=== PATIENT | female | born 1945 | race Caucasian/White ===

== ENCOUNTER 2022-06-08 19:28 | Emergency (ER) | payer OTHER ==
[~2022-06-08] VITALS: Ht 154.9 cm; Wt 60.8 kg
[2022-06-08 19:40] VITALS: BP_SYST 151
--- NOTE | 2022-06-08 19:44 | NUR ---
Patient triaged and placed in waiting room. VSS and patient appears in no acute distress at this time. Accompanied by SELF, awaiting available bed, and MD notified of need for MSE.
--- NOTE | 2022-06-08 19:54 | NUR ---
Patient to ER bed 8 to gown for evaluation. Side rails up. Report given to Roxie VALDES.
--- NOTE | 2022-06-08 19:55 | NUR ---
MD at bedside with patient for evaluation.
--- NOTE | 2022-06-08 20:06 | NUR ---
Pt came from home with c/o of fish hook embedded into left thumb. Pt states she put her hand in to bag and was poked. Pt states the hook might be 15 years old. Pt denies pain at this time.
[2022-06-08] MEDS ORDERED: LIDOCAINE 1% 10 MG/ML, 20 ML MDV INJ ONE (20:15)
--- NOTE | 2022-06-08 20:17 | NUR ---
Pt to radiology via ambulation accompanied by staff.
[2022-06-08] MEDS ORDERED: LIDOCAINE 1%, 20 ML MDV 20 ML ONE (20:18)
--- NOTE | 2022-06-08 20:22 | NUR ---
Pt back from radiology via ambulation accompanied staff.
--- NOTE | 2022-06-08 20:40 | NUR ---
Dr. Purcell at bedside with paitent to remove foregin body from finger. Pt tolerating well. Pt states area is numb.
[2022-06-08] MEDS ORDERED: AMOX-423 PO (20:49)
[2022-06-08] MEDS ORDERED: DIPHTH,PERTUSS(ACELL),TET VAC 0.5 ML VIAL (Tdap) I.M. ONE ×2 (21:00→21:13)
[2022-06-08] MEDS ORDERED: BACITRACIN 1 GM OINT TP ONE ×2 (21:13→21:15)
[2022-06-08] MEDS ORDERED: AMOXICILLIN/CLAVULANATE POTASSIUM 250 MG/5 ML, 75 ML BTL PO ONE (21:15)
[2022-06-08] MEDS ORDERED: AMOXICILLIN/CLAVULANATE POTASSIUM 250 MG/5 ML, 75 ML BTL ONE (21:20)
[2022-06-08 21:26] VITALS: BP_SYST 123
--- NOTE | 2022-06-08 21:26 | NUR ---
Patient given written and verbal discharge instructions and verbalizes understanding. ER Dr. Purcell discussed with patient the results and treatment provided. Patient in stable condition. ID arm band removed. . Rx of augemtin given. Patient educated on pain management and to follow up with PMD. Pain Scale 0. Opportunity for questions provided and answered. Medication side effect fact sheet provided.
== END 2022-06-08 21:26 | disposition home or self-care (01) ==
LOC: SED 19:28
DX: S61.022A Laceration with foreign body of left thumb without damage to nail, initial encounter (principal); Z79.899 Other long term (current) drug therapy; W45.8XXA Other foreign body or object entering through skin, initial encounter; Y93.89 Activity, other specified; Y92.89 Other specified places as the place of occurrence of the external cause; Y99.8 Other external cause status
CPT/HCPCS: 99284; 12031; 73140; 90715; 90471; J2001